=== PATIENT | male | born 1985 | race Caucasian/White ===

== ENCOUNTER 2018-07-12 11:08 | Emergency (ER) | payer BC, OTHER ==
[2018-07-12] MEDS ORDERED: KETOROLAC 30 MG/ML VIAL IVP ONE (11:21)
[2018-07-12] MEDS ORDERED: HYDROMORPHONE HCL 2 MG/ML VIAL IVP ONE ×2 (11:21→13:23)
[2018-07-12] MEDS ORDERED: ONDANSETRON HCL IV 4 MG/2 ML VIAL IVP ONE (11:24)
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
--- NOTE | 2018-07-13 13:57 | RADIOLOGY REPORT ---
EXAM: CERVICAL SPINE HISTORY: NECK PAIN. TECHNIQUE: AP, lateral, oblique, and open mouth views of the cervical spine were performed. FINDINGS: There is normal height and alignment. No evidence of fracture, subluxation or perched facet. The lateral masses are well aligned. IMPRESSION: NEGATIVE CERVICAL SPINE EXAMINATION. JOB NUMBER: [id number] MTDD
--- NOTE | 2018-07-13 14:22 | RADIOLOGY REPORT ---
EXAM: LEFT SHOULDER HISTORY: PAIN. TECHNIQUE: Three views of the left shoulder were performed. FINDINGS: There is a fracture deformity of the humeral head with anterior dislocation. The acromioclavicular joint is normal. IMPRESSION: FRACTURE DEFORMITY OF THE HUMERAL HEAD WITH ANTERIOR DISLOCATION. JOB NUMBER: [id number] MTDD
== END 2018-07-12 13:57 | disposition short-term general hospital (02) ==
LOC: ER 11:08
DX: S42.292A Other displaced fracture of upper end of left humerus, initial encounter for closed fracture (principal); M54.2 Cervicalgia; V19.3XXA Pedal cyclist (driver) (passenger) injured in unspecified nontraffic accident, initial encounter; Y93.55 Activity, bike riding
CPT/HCPCS: 99285 ×2; 96376; 96374; 96375; 72050; 73030; J1885; J2405; J1170